=== PATIENT | female | born 1975 | race Two or more races ===

== ENCOUNTER 2018-06-25 12:39 | Emergency (ER) | payer MEDICAID, OTHER ==
[~2018-06-25] VITALS: Ht 157.5 cm; Wt 77.1 kg
[2018-06-25 14:01] LABS: Basophils # (auto) 0 uL; Basophils % (auto) 0.5 % (0.0-2.0); Eosinophils # (auto) 0 uL; Eosinophils % (auto) 0.8 % (0.0-7.0); Hematocrit 40.6 % (36.0-46.0); Hemoglobin 13.6 g/dL (12.2-16.2); Lymphocytes # (auto) 1.1 uL; Lymphocytes % (auto) 23.5 % (10.0-50.0); Mean Corpuscular Hemoglobin 30.9 pg (28.0-32.0); Mean Corpuscular Hgb Conc. 33.5 g/dL (32.0-36.0); Mean Corpuscular Volume 92.2 fL (80.0-100.0); Monocytes # (auto) 0.4 uL; Monocytes % (auto) 8.7 % (0.0-12.0); Neutrophils % (auto) 66.5 % (37.0-80.0); Nucleated Red Blood Cells % 0.1 %; Platelet Count (auto) 270 10^3/uL (140-450); Red Blood Cells 4.41 10^6/uL (4.0-5.20); Red Cell Distribution Width 13.7 % (11.8-14.3); White Blood Cell 4.6 10^3/uL (4.4-10.8)
[2018-06-25 14:20] LABS: Albumin 3.5 g/dL (3.4-5.0); BUN/Creatinine Ratio 17.9; Bilirubin, Total 0.4 mg/dL (0.2-1.0); Calcium 8.5 mg/dL (8.5-10.1); Potassium 3.9 mmol/L (3.5-5.1); Total Protein 7.1 g/dL (6.4-8.2)
[2018-06-25] MEDS ORDERED: KETOROLAC TROMETH 30 MG/ML 1ML VIAL IV ONE (21:45)
[2018-06-25] MEDS ORDERED: ONDANSETRON HCL 4 MG/2 ML VIAL IV ONE (21:45)
[2018-06-25] MEDS ORDERED: HYDROmorphone HCL 2 MG/ML VL IV ONE (21:45)
[2018-06-25 22:32] LABS: INR 1.01 (0.9-1.15); Partial Thromboplastin Time 25.1 sec (23.78-33.04); Prothrombin Time 10.8 sec (9.27-12.13)
[2018-06-25 22:33] LABS: Amylase 50 U/L (25-115); Lipase 140 U/L (73-393)
[2018-06-25 23:57] LABS: Urine Bacteria NONE SEEN /hpf (None Seen); Urine Blood Negative /uL (Negative); Urine Mucus FEW (None Seen); Urine WBC 2 /hpf (0 - 5)
[2018-06-26 00:17] VITALS: BP 102/67
== END 2018-06-26 00:07 | disposition home or self-care (01) ==
LOC: ER 12:43
DX: R10.31 Right lower quadrant pain (principal); Z87.442 Personal history of urinary calculi
CPT/HCPCS: 36415; 74176; 80053; 81001; 82150; 83690; 84702; 85025; 85610; 85730; 94761; 96374; 96375; 99285; J1170; J1885; J2405; J7030